=== PATIENT | female | born 1975 ===

== ENCOUNTER 2017-07-04 18:54 | Emergency (ER) | payer MEDICAID ==
[2017-07-04 19:18] VITALS: RESP 16; O2SAT 100
--- NOTE | 2017-07-04 20:44 | ED PDOC ---
Upper Extremity Pain/Injury Time Seen by Provider: 07/04/17 19:30 Chief Complaint (Nursing): Dizziness/Lightheaded Chief Complaint (Provider): wrist pain History Per: Patient History/Exam Limitations: no limitations Onset/Duration Of Symptoms: Days (x10) Current Symptoms Are (Timing): Still Present Additional Complaint(s): Patria Rivers is a 42 year old female, right-hand dominant, who presents to the emergency department with a complaint of constant and increasing right wrist pain radiating to right hand and forearm associated with numbness, lightheadedness, dizziness, shortness of breath, occasional blurry vision and difficulty with movements due to pain ongoing for 10 days. Denied injury or trauma. Patient stated she has been taking Tylenol for alleviation of symptoms. PMD: Shaun Belle MD Past Medical History Reviewed: Historical Data, Nursing Documentation, Vital Signs Vital Signs: Last Vital Signs Temp 98.4 F 07/04/17 19:16 Pulse 69 07/04/17 19:16 Resp 16 07/04/17 19:16 BP 153/100 H 07/04/17 19:16 Pulse Ox 100 07/04/17 19:16 - Medical History PMH: HTN (in ), Kidney Stones - Family History Family History: States: Hypertension - Social History Current smoker - smoking cessation education provided: No Ex-Smoker (has not smoked in the last 12 months): No Drugs: Denies - Home Medications Home Medications: Ambulatory Orders Medication Instructions Recorded Nitrofurantoin Macrocrystals 100 mg PO BID #14 cap 11/11/15 [Macrobid] Naproxen [Naprosyn] 1 tab PO BID PRN #60 tab 07/04/17 - Allergies Allergies/Adverse Reactions: Allergies Allergy/AdvReac Type Severity Reaction Status Date / Time No Known Allergies Allergy Verified 07/04/17 19:15 Review of Systems ROS Statement: Except As Marked, All Systems Reviewed And Found Negative Eyes: Positive for: Vision Change (occasional blurry vision) Respiratory: Positive for: Shortness of Breath Musculoskeletal: Positive for: Hand Pain (right wrist radiating to right hand and forearm with limited ROM due to pain). Negative for: Other (injury/trauma) Neurological: Positive for: Numbness (right hand), Dizziness (and lightheadedness) Physical Exam - Reviewed Nursing Documentation Reviewed: Yes Vital Signs Reviewed: Yes - Physical Exam Appears: Positive for: Well, No Acute Distress Head Exam: Positive for: ATRAUMATIC, NORMOCEPHALIC Skin: Positive for: Warm, Dry Eye Exam: Positive for: EOMI, PERRL ENT: Negative for: Pharyngeal Erythema, Tonsillar Exudate Neck: Positive for: Painless ROM, Supple Cardiovascular/Chest: Positive for: Regular Rate, Rhythm. Negative for: Murmur Respiratory: Positive for: Normal Breath Sounds. Negative for: Wheezing Gastrointestinal/Abdominal: Positive for: Soft. Negative for: Tenderness Back: Positive for: Normal Inspection. Negative for: Decreased ROM Extremity: Positive for: Other (RIGHT hand: fingers held in slight flexion, flex /ext of all fingers 5/5, tenderness to palpation at ulnar volar wrist with mild edema of lateral distal ulna, light touch intact, <2 sec CR, 2+ radial pulse) Lymphatic: Negative for: Adenopathy Neurologic/Psych: Positive for: Alert. Negative for: Motor/Sensory Deficits - Laboratory Results Result Diagrams: 07/04/17 20:35 07/04/17 20:35 - ECG ECG Rhythm: Positive for: Normal QRS, Normal ST Segment, Sinus Bradycardia O2 Sat by Pulse Oximetry: 100 (RA) Pulse Ox Interpretation: Normal Medical Decision Making Medical Decision Making: Initial Impression: Right hand paresthesia; hypertension Differential Diagnosis: Electrolyte abnormality; muscle spasm; tendonitis Initial Plan: * EKG * CMP * Magnesium * Phosphorous * Urine dipstick * Urine pregnacy * CBC * Toradol 15mg IVP * Xray forearm (right): No fx/dislocation * Xray wrist (right): No fx/dislocation. Labs demonstrate mild hypophosphatemia. No emergently significant lab abnormalities. DW pt findings and plan of care. Wrist tendonitis: didi, f/u hand. Scribe Attestation: Documented by Lena Diamond, acting as a scribe for Marylou Contreras MD. Provider Scribe Attestation: All medical record entries made by the Scribe were at my direction and personally dictated by me. I have reviewed the chart and agree that the record accurately reflects my personal performance of the history, physical exam, medical decision making, and the department course for this patient. I have also personally directed, reviewed, and agree with the discharge instructions and disposition. Disposition - Clinical Impression Clinical Impression: Wrist tendonitis, Transient hypertension, Hypophosphatemia - Disposition Referrals: Shaun Belle MD [Family Provider] - Mark Fernandez MD [Staff Provider] - (CALL HAND SPECIALIST TOMORROW FOR FOLLOW UP IN 2-3 DAYS.) [facility] [Outside] Disposition: Routine/Home Disposition Time: 21:30 Condition: GOOD Additional Instructions: Use wrist splint until you follow up with hand specialist. You can also obtain a slimmer applications instructor wrist splint at the pharmacy. Take a multivitamin daily. Prescriptions: Naproxen [Naprosyn] 1 tab PO BID PRN #60 tab PRN Reason: Pain Instructions: Tendinitis (ED)
[2017-07-04 20:53] LABS: BASO # 0.1 K/uL (0.0-0.2); BASO % 1.2 % (0.0-2.0); EOS # 0.2 K/uL (0.0-0.7); EOS % 2.9 % (0.0-4.0); HEMATOCRIT 40.5 % (34.0-47.0); LYMPH # 2.5 K/uL (1.0-4.3); LYMPH % 37.3 % (20.0-40.0); MEAN CELL VOLUME 94.7 fl (81.0-99.0); MEAN CORPUSCULAR HEMOGLOBIN 31.1 pg (27.0-31.0); MEAN CORPUSCULAR HGB CONC 32.8 g/dL (33.0-37.0); MEAN PLATELET VOLUME 8.8 fl (7.2-11.7); MONO # 0.5 K/uL (0.0-0.8); NEUT # 3.4 K/uL (1.8-7.0); NEUT % 50.6 % (50.0-75.0); NRBC % 0.1 % (0.0-0.0); RED CELL DISTRIBUTION WIDTH 14.1 % (11.5-14.5); WHITE BLOOD COUNT 6.8 K/uL (4.8-10.8)
[2017-07-04 21:01] LABS: ALB/GLOB RATIO 1.5 (1.0-2.1); ALKALINE PHOSPHATASE 58 U/L (38-126); ALT/SGPT 28 U/L (9-52); AST/SGOT 30 U/L (14-36); BILIRUBIN,TOTAL 0.6 mg/dl (0.2-1.3); BLOOD UREA NITROGEN 13 mg/dl (7-17); CALCIUM 9.3 mg/dL (8.4-10.2); CARBON DIOXIDE 27 mmol/L (22-30); CHLORIDE 101 mmol/L (98-107); GFR AFRICAN-AMERICAN > 60; GLUCOSE,RANDOM 102 mg/dL (65-105); MAGNESIUM 1.9 MG/DL (1.6-2.3); PHOSPHOROUS 2.2 mg/dl (2.5-4.5); SODIUM 141 mmol/l (132-148)
[2017-07-04 21:04] LABS: POTASSIUM 3.9 MMOL/L (3.6-5.0)
[2017-07-04 21:44] VITALS: BP 133/81; PULSE 57; TEMP 97.8
--- NOTE | 2017-07-05 09:23 | CARD ---
APPROVED REPORT EKG Measurement Heart [id number] ND [id number] [id number] <Conclusion> Sinus bradycardia Otherwise normal ECG
--- NOTE | 2017-07-05 15:04 | RAD ---
PROCEDURE: Radiographs of the Right Forearm HISTORY: Pain and swelling COMPARISON: None available. TECHNIQUE: Frontal and lateral views obtained. FINDINGS: BONES: Bone alignment and mineralization are normal. There is no acute displaced fracture or bone destruction. JOINT SPACES: Unremarkable. OTHER FINDINGS: None. IMPRESSION: No acute fracture or dislocation.
--- NOTE | 2017-07-05 15:04 | RAD ---
PROCEDURE: Right Wrist Radiographs. HISTORY: Pain and swelling COMPARISON: None. FINDINGS: BONES: Bone alignment and mineralization are normal. There is no acute displaced fracture or bone destruction JOINTS: Normal. No dislocation. SOFT TISSUES: Normal. OTHER FINDINGS: None. IMPRESSION: Normal examination.
== END 2017-07-04 23:03 | disposition home or self-care (01) ==
LOC: H.ER 18:54
DX: M77.9 Enthesopathy, unspecified (principal); E83.39 Other disorders of phosphorus metabolism
CPT/HCPCS: 29125; 73090; 73110; 80053; 81025; 83735; 84100; 85025; 93005; 96374; 99285; J1885